=== PATIENT | male | born 1975 ===

== ENCOUNTER 2016-06-09 18:50 | Emergency (ER) | payer OTHER ==
[2016-06-09 18:51] VITALS: BMI 28.2
[2016-06-09 18:58] VITALS: BP 160/88; PULSE 91
[2016-06-09 19:34] VITALS: RESP 16; TEMP 99; O2SAT 98
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
--- NOTE | 2016-06-10 10:15 | RAD ---
HISTORY: pain COMPARISON: No prior. FINDINGS: BONES: Alignment maintained. No fracture. DISC SPACES: Normal. SOFT TISSUES: Normal. OTHER FINDINGS: None. IMPRESSION: Normal radiographs of the thoracic spine.
== END 2016-06-09 20:15 | disposition home or self-care (01) ==
LOC: ED 18:50
DX: M54.9 Dorsalgia, unspecified (principal)